=== PATIENT | male | born 1955 | race Caucasian/White ===

== ENCOUNTER 2017-09-26 09:54 | Emergency (ER) | payer OTHER ==
[~2017-09-26] VITALS: Ht 180.3 cm; Wt 169.3 kg
[2017-09-26] MEDS ORDERED: ATOR-2 PO (10:29)
[2017-09-26] MEDS ORDERED: METF500T5 PO (10:29)
[2017-09-26] MEDS ORDERED: CARV3.122 PO (10:29)
[2017-09-26] MEDS ORDERED: LISI2.5T PO (10:29)
[2017-09-26] MEDS ORDERED: GABA600T2 PO (10:29)
[2017-09-26] MEDS ORDERED: ASPI-515 PO (10:29)
[2017-09-26] MEDS ORDERED: ALLO300T PO (10:29)
[2017-09-26] MEDS ORDERED: MALOXICAM PO (10:29)
[2017-09-26 11:00] LABS: BASOPHILS # (AUTO) 0.06 x10^3/uL (0-0.1); BASOPHILS % (AUTO) 1 % (0-1); EOSINOPHILS # (AUTO) 0.37 x10^3/uL (0-0.4); EOSINOPHILS % (AUTO) 5 % (1-7); LYMPHOCYTES # (AUTO) 1.22 x10^3/uL (1-3.4); LYMPHOCYTES % (AUTO) 17 % (22-44); MD NO; MEAN CORPUSCULAR HEMOGLOBIN 28.4 pg (27.5-34.5); MEAN CORPUSCULAR HGB CONC 33.2 g/dL (33.2-36.2); MEAN CORPUSCULAR VOLUME 85.6 fL (81-97); MEAN PLATELET VOLUME 7.9 fL (7.4-10.4); MONOCYTES # (AUTO) 0.34 x10^3/uL (0.2-0.8); MONOCYTES % (AUTO) 5 % (2-9); NEUTROPHILS # (AUTO) 5.13 x10^3/uL (1.8-6.8); NEUTROPHILS % (AUTO) 72 % (42-75); PLATELET COUNT 187 x10^3/uL (130-400); RED BLOOD COUNT 4.47 x10^6/uL (4.38-5.82); RED CELL DISTRIBUTION WIDTH 18.2 % (9.4-14.8)
[2017-09-26 11:13] LABS: ALANINE AMINOTRANSFERASE 27 U/L (12-78); ALBUMIN 3.5 g/dL (3.4-5.0); ANION GAP 9 mmol/L (5-15); CALCIUM 8.9 mg/dL (8.5-10.1); CHLORIDE 111 mmol/L (98-107); CREATININE 1.55 mg/dL (0.7-1.3)
[2017-09-26 11:17] LABS: ALKALINE PHOSPHATASE 77 U/L (45-117); BILIRUBIN,TOTAL 0.3 mg/dL (0.2-1.0); TOTAL PROTEIN 7.4 g/dL (6.4-8.2); TROPONIN I < 0.015 ng/mL (0.000-0.045)
[2017-09-26 11:29] VITALS: BP 101/59
== END 2017-09-26 11:45 | disposition home or self-care (01) ==
LOC: ED 11:28
DX: E86.0 Dehydration (principal); I10 Essential (primary) hypertension; E11.9 Type 2 diabetes mellitus without complications; Z48.00 Encounter for change or removal of nonsurgical wound dressing
CPT/HCPCS: 36415; 80053; 84484; 85025; 99284

== ENCOUNTER 2017-10-22 11:45 | Inpatient (IN) | payer OTHER ==
[~2017-10-22] VITALS: Ht 180.3 cm; Wt 164.5 kg
[~2017-10-22 11:45] MED LIST: ALLO300T PO; ASPI-515 PO; ATOR-2 PO; CARV3.122 PO; GABA600T2 PO; LISI2.5T PO; MALOXICAM PO; METF500T5 PO
[2017-10-22] MEDS ORDERED: NITROGLYCERIN SINGLE TAB 0.4 MG SL ONE (12:28)
[2017-10-22] MEDS ORDERED: ONDANSETRON 2MG/ML, 2ML ONE (12:28)
[2017-10-22] MEDS ORDERED: NITROGLYCERIN SINGLE TAB 0.4 MG SL PRN (12:30)
[2017-10-22] MEDS ORDERED: SODIUM CHLORIDE FLUSH 10ML SYR IVF ONE (12:30)
[2017-10-22] MEDS ORDERED: ONDANSETRON 2MG/ML, 2ML IVPush ONE (12:30)
[2017-10-22] MEDS ORDERED: SODIUM CHLORIDE 0.9% 1,000ML IVBOLUS ONE (12:30)
[2017-10-22 12:41] LABS: TROPONIN I < 0.015 ng/mL (0.000-0.045)
[2017-10-22 13:08] LABS: BASOPHILS # (AUTO) 0.04 x10^3/uL (0-0.1); BASOPHILS % (AUTO) 1 % (0-1); EOSINOPHILS # (AUTO) 0.41 x10^3/uL (0-0.4); EOSINOPHILS % (AUTO) 5 % (1-7); LYMPHOCYTES # (AUTO) 1.51 x10^3/uL (1-3.4); LYMPHOCYTES % (AUTO) 18 % (22-44); MD NO; MEAN CORPUSCULAR HEMOGLOBIN 28.9 pg (27.5-34.5); MEAN CORPUSCULAR HGB CONC 33.3 g/dL (33.2-36.2); MEAN PLATELET VOLUME 8.8 fL (7.4-10.4); MONOCYTES # (AUTO) 0.58 x10^3/uL (0.2-0.8); MONOCYTES % (AUTO) 7 % (2-9); NEUTROPHILS # (AUTO) 5.76 x10^3/uL (1.8-6.8); NEUTROPHILS % (AUTO) 69 % (42-75); PLATELET COUNT 164 x10^3/uL (130-400); RED BLOOD COUNT 4.51 x10^6/uL (4.38-5.82); RED CELL DISTRIBUTION WIDTH 19.5 % (9.4-14.8)
[2017-10-22 13:19] LABS: ANION GAP 6 mmol/L (5-15); CHLORIDE 110 mmol/L (98-107); CREATININE 1.99 mg/dL (0.7-1.3)
[2017-10-22] MEDS ORDERED: SODIUM BICARB 8.4%, 50ML SYRINGE IVPush ONE (13:30)
[2017-10-22] MEDS ORDERED: FUROSEMIDE 40 MG/4 ML IVPush ONE (13:30)
[2017-10-22] MEDS ORDERED: SODIUM BICARB 8.4%, 50ML SYRINGE ONE (13:52)
[2017-10-22] MEDS ORDERED: FUROSEMIDE 40 MG/4 ML ONE (13:53)
[2017-10-22] MEDS ORDERED: GABA300C10 PO (14:17)
[2017-10-22] MEDS ORDERED: SULF1TAB24 PO (14:17)
[2017-10-22] MEDS ORDERED: ATOR20TA9 PO (14:17)
[2017-10-22 14:55] VITALS: BP 126/72
[2017-10-22] MEDS ORDERED: SODIUM POLYSTYRENE SULFONATE ORAL SUSP PO ONE (15:00)
[2017-10-22] MEDS ORDERED: ONDANSETRON 2MG/ML, 2ML IVPush PRN (15:00)
[2017-10-22] MEDS: HEPARIN 5,000 UNITS/ML, 1ML SQ SCH ×2 (15:00→23:17)
[2017-10-22 15:30] VITALS: BP 117/70
[2017-10-22 15:33] VITALS: BP 126/78
[2017-10-22 15:36] VITALS: BP 126/79
[2017-10-22] MEDS: INSULIN LISPRO 100 UNITS/ML, PEN SQ-INSULIN SCH ×2 (16:00→20:53)
[2017-10-22 16:12] LABS: MICROSCOPIC NOT IND
[2017-10-22 16:17] LABS: CULTURE INDICATED? NO
[2017-10-22 16:38] LABS: FREE T4 (FREE THYROXINE) 0.96 ng/dL (0.76-1.46); THYROID STIMULATING HORMONE 1.83 mIU/L (0.358-3.740)
[2017-10-22 17:10] LABS: HEMOGLOBIN A1C 6.1 % (4.2-6.3)
[2017-10-22 19:02] VITALS: BP 103/63
[2017-10-22 19:04] VITALS: BP_SYST 102; BP_SYST 111; BP_DIAS 63; BP_DIAS 65
[2017-10-22] MEDS: ATORVASTATIN 40 MG TABLET PO SCH (20:52)
[2017-10-22] MEDS: SULFAMETH./TRIMETHOPRIM DS 800MG/160MG TABLET PO SCH (20:52)
[2017-10-22] MEDS: CARVEDILOL 3.125 MG TABLET PO SCH (20:53)
[2017-10-22] MEDS: GABAPENTIN 300 MG CAPSULE PO SCH (20:53)
[2017-10-23] VITALS (9 sets, daily range): BP systolic 97–124; BP diastolic 61–78
[2017-10-23 05:46] LABS: BASOPHILS # (AUTO) 0.05 x10^3/uL (0-0.1); BASOPHILS % (AUTO) 1 % (0-1); EOSINOPHILS # (AUTO) 0.34 x10^3/uL (0-0.4); EOSINOPHILS % (AUTO) 5 % (1-7); LYMPHOCYTES % (AUTO) 24 % (22-44); MD NO; MEAN CORPUSCULAR HEMOGLOBIN 28.6 pg (27.5-34.5); MEAN CORPUSCULAR HGB CONC 32.9 g/dL (33.2-36.2); MEAN CORPUSCULAR VOLUME 86.8 fL (81-97); MEAN PLATELET VOLUME 8.3 fL (7.4-10.4); MONOCYTES # (AUTO) 0.54 x10^3/uL (0.2-0.8); MONOCYTES % (AUTO) 8 % (2-9); NEUTROPHILS # (AUTO) 4.24 x10^3/uL (1.8-6.8); NEUTROPHILS % (AUTO) 63 % (42-75); PLATELET COUNT 144 x10^3/uL (130-400); RED BLOOD COUNT 4.42 x10^6/uL (4.38-5.82); RED CELL DISTRIBUTION WIDTH 19.3 % (9.4-14.8)
[2017-10-23 05:50] LABS: CHLORIDE 110 mmol/L (98-107)
[2017-10-23 06:00] LABS: ALANINE AMINOTRANSFERASE 32 U/L (12-78); ALBUMIN 3.7 g/dL (3.4-5.0); ALKALINE PHOSPHATASE 80 U/L (45-117); ANION GAP 7 mmol/L (5-15); BILIRUBIN,TOTAL 0.5 mg/dL (0.2-1.0); CALCIUM 8.6 mg/dL (8.5-10.1); CHOL/HDL RATIO 3.6; CHOLESTEROL, TOTAL 97 mg/dL (140-239); CREATININE 1.78 mg/dL (0.7-1.3); HDL CHOL % 28 % (26-37); HDL CHOLESTEROL (DIRECT) 27 mg/dL (40-60); LDL CHOLESTEROL,CALCULATED 41 mg/dL (54-169); LDL/HDL RATIO 1.5 (0.5-3.0); TOTAL PROTEIN 7.2 g/dL (6.4-8.2); TRIGLYCERIDES 147 mg/dL (50-200); VLDL CHOLESTEROL 29 mg/dL (0-25)
[2017-10-23] MEDS: INSULIN LISPRO 100 UNITS/ML, PEN SQ-INSULIN SCH ×4 (07:57→21:09)
[2017-10-23] MEDS: GABAPENTIN 300 MG CAPSULE PO SCH ×2 (09:40→21:09)
[2017-10-23] MEDS: HEPARIN 5,000 UNITS/ML, 1ML SQ SCH ×2 (09:40→17:25)
[2017-10-23] MEDS: SULFAMETH./TRIMETHOPRIM DS 800MG/160MG TABLET PO SCH (09:41)
[2017-10-23] MEDS: CARVEDILOL 3.125 MG TABLET PO SCH ×2 (09:41→21:09)
[2017-10-23] MEDS: ASPIRIN 81 MG TABLET EC PO SCH (09:41)
[2017-10-23] MEDS ORDERED: SODIUM POLYSTYRENE SULFONATE ORAL SUSP PO ONE (15:00)
[2017-10-23] MEDS: ATORVASTATIN 40 MG TABLET PO SCH (21:08)
[2017-10-24] MEDS: HEPARIN 5,000 UNITS/ML, 1ML SQ SCH ×2 (01:04→08:15)
[2017-10-24 01:05] VITALS: BP 114/73
[2017-10-24 06:00] LABS: ANION GAP 6 mmol/L (5-15); CALCIUM 8.4 mg/dL (8.5-10.1); CHLORIDE 108 mmol/L (98-107)
[2017-10-24 06:02] LABS: CREATININE 1.41 mg/dL (0.7-1.3)
[2017-10-24] MEDS: INSULIN LISPRO 100 UNITS/ML, PEN SQ-INSULIN SCH ×2 (07:00→11:00)
[2017-10-24 07:34] VITALS: BP_SYST 110; BP_SYST 133; BP_SYST 93; BP_DIAS 59; BP_DIAS 73; BP_DIAS 83
[2017-10-24 07:45] VITALS: BP_SYST 118; BP_SYST 125; BP_SYST 131; BP_DIAS 73; BP_DIAS 80; BP_DIAS 86
[2017-10-24] MEDS: ASPIRIN 81 MG TABLET EC PO SCH (08:15)
[2017-10-24] MEDS: CARVEDILOL 3.125 MG TABLET PO SCH (08:15)
[2017-10-24] MEDS: GABAPENTIN 300 MG CAPSULE PO SCH (08:15)
[2017-10-24] MEDS ORDERED: SODIUM CHLORIDE 0.9% 1,000 ML IV SCH (11:00)
[2017-10-24 12:27] VITALS: BP_SYST 123; BP_SYST 124; BP_SYST 130; BP_DIAS 74; BP_DIAS 78; BP_DIAS 86
== END 2017-10-24 14:02 | disposition home or self-care (01) | DRG 640 ==
LOC: ED 12:11 → EDIP 13:48 → 4WST 14:47
PROVIDERS: ADMIT Internal Medicine; ATTEND Internal Medicine
PROC: 5A09357 Assistance with Respiratory Ventilation, Less than 24 Consecutive Hours, Continuous Positive Airway Pressure (ICD-10-PCS; principal; 2017-10-23)
PROC: 5A09357 Assistance with Respiratory Ventilation, Less than 24 Consecutive Hours, Continuous Positive Airway Pressure (ICD-10-PCS; 2017-10-24)
DX: E87.5 Hyperkalemia (principal); N17.0 Acute kidney failure with tubular necrosis; Z68.43 Body mass index [BMI] 50.0-59.9, adult; N18.9 Chronic kidney disease, unspecified; I12.9 Hypertensive chronic kidney disease with stage 1 through stage 4 chronic kidney disease, or unspecified chronic kidney disease; E11.22 Type 2 diabetes mellitus with diabetic chronic kidney disease; E66.01 Morbid (severe) obesity due to excess calories; E78.5 Hyperlipidemia, unspecified; G47.30 Sleep apnea, unspecified; I25.10 Atherosclerotic heart disease of native coronary artery without angina pectoris; I77.819 Aortic ectasia, unspecified site; J45.909 Unspecified asthma, uncomplicated; Z80.0 Family history of malignant neoplasm of digestive organs; Z82.49 Family history of ischemic heart disease and other diseases of the circulatory system; Z87.442 Personal history of urinary calculi; M10.9 Gout, unspecified; Z79.82 Long term (current) use of aspirin; Z79.899 Other long term (current) drug therapy
CPT/HCPCS: 36415; 71045; 76770; 80048; 80053; 80061; 81003; 82570; 82962; 83036; 83735; 84100; 84156; 84300; 84439; 84443; 84484; 85025; 93005; 93306; 93880; 96361; 96374; 96375; 97162; J1644; J1940; J2405; J7030

== ENCOUNTER → 2018-01-24 | Outpatient (CLI) | payer OTHER ==
[~2018-01-24] MED LIST changes: +ATOR20TA9 PO; +GABA300C10 PO; +METF500T17 PO; -METF500T5 PO; +REGADENOSON 0.4 MG/5 ML SYRINGE ONE; +SULF1TAB24 PO
== END | disposition home or self-care (01) ==
LOC: CFH 08:04
PROVIDERS: ATTEND Internal Medicine Cardiovascular Disease
DX: I21.19 ST elevation (STEMI) myocardial infarction involving other coronary artery of inferior wall (principal); I25.9 Chronic ischemic heart disease, unspecified; I77.810 Thoracic aortic ectasia; E66.01 Morbid (severe) obesity due to excess calories; I10 Essential (primary) hypertension; E11.9 Type 2 diabetes mellitus without complications; E78.5 Hyperlipidemia, unspecified
CPT/HCPCS: 78452; 93017; A9502; J2785

== ENCOUNTER → 2018-03-23 | Outpatient (CLI) | payer OTHER ==
[~2018-03-23] MED LIST changes: +ATOR20TA37 PO; -ATOR20TA9 PO; +OMNIPAQUE 350 MG/ML, 100ML BOTTLE ONE; -REGADENOSON 0.4 MG/5 ML SYRINGE ONE
== END | disposition home or self-care (01) ==
LOC: CFH 10:22
PROVIDERS: ATTEND Internal Medicine Cardiovascular Disease
DX: I77.810 Thoracic aortic ectasia (principal); D71 Functional disorders of polymorphonuclear neutrophils
CPT/HCPCS: 71275; Q9967